=== PATIENT | male | born 1950 | race Caucasian/White ===

== ENCOUNTER 2022-04-29 08:26 | Outpatient (CLI) | payer MEDICARE, BC | END 2022-04-29 08:27 | disposition home or self-care (01) | LOC: NM 08:26 | PROVIDERS: ATTEND Family Medicine | DX: M53.3 Sacrococcygeal disorders, not elsewhere classified (principal) | CPT/HCPCS: 78306; A9503 ==

== ENCOUNTER 2022-11-23 07:41 | Outpatient (CLI) | payer MEDICARE, BC | END 2022-11-23 07:42 | disposition home or self-care (01) | LOC: BICULT 07:41 | PROVIDERS: ATTEND Internal Medicine Nephrology | DX: N18.30 Chronic kidney disease, stage 3 unspecified (principal) | CPT/HCPCS: 76770; 93975 ==

== ENCOUNTER 2023-04-05 07:29 | Outpatient (CLI) | payer MEDICARE, BC | END 2023-04-05 07:30 | disposition home or self-care (01) | LOC: NM 07:29 | PROVIDERS: ATTEND Family Medicine | DX: E21.1 Secondary hyperparathyroidism, not elsewhere classified (principal) | CPT/HCPCS: 78072; A9500 ==